=== PATIENT | male | born 1950 | race Caucasian/White ===

== ENCOUNTER → 2018-08-30 | Outpatient (CLI) | payer OTHER | LOC: HYPER 06:47 | DX: L89.153 Pressure ulcer of sacral region, stage 3 (principal); L89.224 Pressure ulcer of left hip, stage 4; L89.894 Pressure ulcer of other site, stage 4; L89.624 Pressure ulcer of left heel, stage 4; L89.323 Pressure ulcer of left buttock, stage 3; A92.30 West Nile virus infection, unspecified; A04.71 Enterocolitis due to Clostridium difficile, recurrent; G82.20 Paraplegia, unspecified; I50.20 Unspecified systolic (congestive) heart failure; I25.10 Atherosclerotic heart disease of native coronary artery without angina pectoris; F41.9 Anxiety disorder, unspecified; F32.9 Major depressive disorder, single episode, unspecified; Z86.711 Personal history of pulmonary embolism; Z93.3 Colostomy status; Z79.4 Long term (current) use of insulin ==

== ENCOUNTER → 2018-11-08 | Outpatient (CLI) | payer OTHER | LOC: ULTRA 09:17 | DX: L97.929 Non-pressure chronic ulcer of unspecified part of left lower leg with unspecified severity (principal); L97.919 Non-pressure chronic ulcer of unspecified part of right lower leg with unspecified severity; M79.661 Pain in right lower leg; M79.662 Pain in left lower leg ==

== ENCOUNTER → 2018-11-24 | Outpatient (CLI) | payer OTHER ==
[~2018-11-24] MED LIST: ASPIR 8181 MG PO; CYCLOBENZAPRINE5 MG PO; FENOFIBRATE160 MG PO; IRON325 PO; LEXAPRO 10 MG T10 M1 PO; LIPITOR10 MG PO; METFORMIN HCL500 MG PO; NEURONTIN 300300 M1 PO; ONDANSETRON HCL4 M2 PO; OXYCODONE-ACET1 EAC2 PO; OXYCONTIN10 M1 PO; PROTONIX40 M1 PO; TOPROL XL25 MG PO; TYLENOL325 MG PO; UNICOMPLEX M TA1 TA1 PO; VITAMINC500 PO
== END ==
LOC: MRI 13:32
DX: L97.129 Non-pressure chronic ulcer of left thigh with unspecified severity (principal); M86.8X5 Other osteomyelitis, thigh; M47.816 Spondylosis without myelopathy or radiculopathy, lumbar region; M62.562 Muscle wasting and atrophy, not elsewhere classified, left lower leg

== ENCOUNTER 2018-11-25 16:00 | Inpatient (IN) | payer OTHER ==
[~2018-11-25] VITALS: Ht 180.3 cm; Wt 64.9 kg
[2018-11-25 17:59] LABS: ABSOLUTE NEUTROPHILS 5.6 thou/uL (1.4-8.2); BASOPHILS 0.6 % (0.0-2.0); EOSINOPHILS 6.7 % (0.0-3.0); HEMATOCRIT 25.6 % (42.0-52.0); HEMOGLOBIN 8.5 gm/dL (14.0-18.0); LYMPHOCYTES 19.1 % (24.0-44.0); MCH 24.6 pg (26.0-34.0); MCHC 33.2 g/dL (28.0-37.0); MCV 74.3 fL (80.0-100.0); PLATELET COUNT 325 thou/uL (150-400); POLYS 61.6 % (36.0-66.0); RBC 3.45 mil/uL (4.50-6.00); RDW 15.4 % (10.5-14.5); WBC 9.2 thou/uL (4.0-11.0)
[2018-11-25 18:03] LABS: CALCIUM 8.5 mg/dL (8.5-10.1); CREATININE 0.9 mg/dL (0.7-1.3); POTASSIUM 4.7 mmol/L (3.5-5.1)
[2018-11-25 18:09] LABS: ALBUMIN 2.5 g/dL (3.4-5.0); TOTAL BILIRUBIN 0.2 mg/dL (<0.1-1.0)
[2018-11-25 18:50] VITALS: BP 132/66
[2018-11-25 18:51] VITALS: BP 132/66
[2018-11-25] MEDS ORDERED: TYLENOL325 MG PO (18:56)
[2018-11-25] MEDS ORDERED: ASPIR 8181 MG PO (18:56)
[2018-11-25] MEDS ORDERED: LIPITOR10 MG PO (18:56)
[2018-11-25] MEDS ORDERED: LEXAPRO 10 MG T10 M1 PO (18:57)
[2018-11-25] MEDS ORDERED: CYCLOBENZAPRINE5 MG PO (18:57)
[2018-11-25] MEDS ORDERED: NEURONTIN 300300 M1 PO (19:02)
[2018-11-25] MEDS ORDERED: IRON325 PO (19:02)
[2018-11-25] MEDS ORDERED: FENOFIBRATE160 MG PO (19:02)
[2018-11-25] MEDS ORDERED: TOPROL XL25 MG PO (19:03)
[2018-11-25] MEDS ORDERED: METFORMIN HCL500 MG PO (19:03)
[2018-11-25] MEDS ORDERED: VITAMINC500 PO (19:04)
[2018-11-25] MEDS ORDERED: UNICOMPLEX M TA1 TA1 PO (19:04)
[2018-11-25] MEDS ORDERED: OXYCODONE-ACET1 EAC2 PO (19:04)
[2018-11-25] MEDS ORDERED: OXYCONTIN10 M1 PO (19:04)
[2018-11-25] MEDS ORDERED: PROTONIX40 M1 PO (19:04)
[2018-11-25] MEDS ORDERED: ONDANSETRON HCL4 M2 PO (19:05)
[2018-11-25 19:06] VITALS: BP 123/64
[2018-11-25 19:30] LABS: URINE CLARITY CLOUDY; URINE COLOR YELLOW; URINE GLUCOSE-RANDOM* NEGATIVE (Negative); URINE KETONES NEGATIVE (Negative); URINE PROTEIN (DIPSTICK) 2+ (Negative); URINE SPECIFIC GRAVITY 1.005 (1.005-1.035)
[2018-11-25 19:31] VITALS: BP 132/65
[2018-11-25 19:31] LABS: URINE BILIRUBIN NEGATIVE (Negative); URINE BLOOD 3+ (Negative); URINE LEUKOCYTES-REFLEX 3+ (Negative); URINE NITRITE-REFLEX POSITIVE (Negative); URINE UROBILINOGEN 0.2 E.U./dl (0.2-1.0)
[2018-11-25 19:57] LABS: AMORPHOUS PHOSPHATES Many /LPF (None Seen); CASTS None Seen /LPF (None Seen); TRIPLE PHOSPHATE CRYSTALS 0-3 Few /LPF (None Seen)
[2018-11-25 19:58] LABS: BACTERIA-REFLEX >30 Many /HPF (None Seen); SQUAMOUS 0-3 Few /LPF (0-3); URINE WBC-REFLEX 0-5 Rare /HPF (0-5)
[2018-11-25 23:47] VITALS: BP 94/54
--- NOTE | 2018-11-26 02:58 | NUR ---
PT ARRIVED TO UNIT APPROX 1930, TRANSFERRED FROM CART TO BED AND SETTLED IN ROOM, PLACED ON TELE. CONSENTS SIGNED INCLUDING TELE DISCLAIMER. ADMISSION AND ASSESSMENT COMPLETED. 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 IS ABLE TO FEED HIMSELF AND ASSIST WITH GROOMING. USUALLY LIVES AT HOME BY HIMSELF AND HAS HOME HEALTH; CURRENTLY AT THE [facility]. PT DENIES NAUSEA OR SOB. REPORTS SIGNIFICANT PAIN IN LEFT LEG WOUND AND SACRUM; FOLLOWS WITH DR. GALLEGOS AT [facility] FOR PAIN MANAGEMENT. ALL WOUNDS PHOTOGRAPHED AND DOCUMENTED PER PROTOCOL. PT IS DIABETIC; NPO AT MIDNIGHT FOR POSSIBLE PROCEDURE TO WOUNDS IN AM. SR ON TELE WITH HR IN 80'S. PT HAS A COLOSTOMY AND SUPRAPUBIC MOSS; PT REPORTS NEEDING HIS CATHETER CHANGED IT HAS BEEN OVER A MONTH SINCE LAST CHANGED; STATES IT IS AN 18 Fr WITH 30 ML BALLOON. NO OTHER CONCERNS, WILL CONTINUE TO MONITOR.
[2018-11-26 04:38] VITALS: BP 122/71
[2018-11-26 05:37] LABS: HEMATOCRIT 29.8 % (42.0-52.0); HEMOGLOBIN 9.5 gm/dL (14.0-18.0); MCH 24.2 pg (26.0-34.0); MCV 75.7 fL (80.0-100.0); RBC 3.94 mil/uL (4.50-6.00); RDW 15.7 % (10.5-14.5); WBC 8.2 thou/uL (4.0-11.0)
[2018-11-26 05:57] LABS: CALCIUM 8.9 mg/dL (8.5-10.1); CREATININE 0.8 mg/dL (0.7-1.3); POTASSIUM 4.8 mmol/L (3.5-5.1)
[2018-11-26 08:01] VITALS: BP 90/52
--- NOTE | 2018-11-26 12:29 | NUR ---
DISCHARGE PLANNING. PATIENT ADMITTED FROM [facility]. PLAN IS FOR PATIENT TO RETURN TO [facility] ONCE MEDICALLY READY. CLINCAL INFORMATION FAXED TO [facility], [facility], VERIFIED RECEIVED. CALL PLACED TO [facility] TO NOTIFY. ANTICIPATED DISCHARGE PLANNED FOR THE BEGINNING OF NEXT WEEK. UNIT SW AWARE.
--- NOTE | 2018-11-26 13:51 | NUR ---
INITIAL ASSESSMENT: COURTNEY reviewed chart and spoke with nursing and attending physician. Pt was admitted from [facility] due to osteomyelitis. Pt with hx of paraplegia and has bilateral hip hounds. Surgery consulted. Pt is currently on IV abx. COURTNEY met with pt at bedside. Introduced role of SW. Pt is alert/orientated x 4. Pt reports he has been at [facility] for about a month. Prior to being at [facility], he was living at home with his nephew. Pt has a w/c for mobility and a lift device for transfers. Pt has used [facility] in the past. Pt is agreeable with returning to [facility] if needed or home with services. Will need insurance authorization for SNF placement. No weekend discharge planned. Pt agreeable with keeping [facility] updated. strategic planner faxed clinical info for review. COURTNEY is following to assist as needed with discharge planning.
[2018-11-26 16:25] VITALS: BP 126/75
--- NOTE | 2018-11-26 16:25 | NUR ---
ASSUMED CARE OF PATIENT AT 0700. PATIENT REMAINED NPO MOST OF THE DAY TODAY WHILE WAITING FOR DR VERMA TO RESPOND REGARDING SURGERY. DID NOT RECIEVE CALL FROM DR VERMA BUT DR ORDERED REGULAR DIET AROUND 1630. TURNED PATIENT AND MEDICATED FOR PAIN THROUGHOUT DAY. PATIENT ALSO RECIEVED ANTIBIOTIC THERAPY. PATIENT WAS SEEN BY WOUND CARE TODAY WHO ORDERED AQUACEL AG DAILY/PRN FOR HIS WOUNDS.
[2018-11-26 20:02] VITALS: BP 125/73; BP 425/73
--- NOTE | 2018-11-26 23:58 | NUR ---
ASSUMED CARE AT 1900, ASSESSMENT COMPLETED. PT DENIES SOB OR NAUSEA. REPORTS MODERATE PAIN IN LEFT THIGH AND SACRUM; UTILIZING PERCOCET AND MORPHINE FOR BREAKTHROUGH PAIN. DRESSINGS C/D/I; TURNING REGULARLY FOR WOUND HEALING; PRAFO BOOTS PLACED ON PT AND MIKAEL PUMP ATTACHED TO THE BED. HAS BEEN SR ON TELE OVERNIGHT. REPORT CALLED TO RUTHIE ON 4E, PT TRANSFERRED TO UNIT ABOUT 2340 IN STABLE CONDITION. PT NPO AT MIDNIGHT FOR WOUND DEBRIDEMENT IN AM.
--- NOTE | 2018-11-27 01:39 | NUR ---
PT ARRIVED FROM 3W QPPROXMIATELY 2330. PT ALERT AND ORIENTED. REASSESSMENT COMPLETE. AGREE WITH PREVIOUS NURSE ASSESSMENT. VSS. IV DRESSING C/D/I. PT NPO AT MIDNIGHT. SUPRAPUBIC MOSS CHANGED. COLOSTOMY INTACT. CALL LIGHT AND PERSONAL BELONINGS WITHIN REACH. CONSENTS FOR PROCEDURE IN AM, NOT SIGNED, PT STATED HAD NOT HAD SPOKE WITH PHYCISIAN REGARDING SPECIFICS OF PROCEDURES, WILL PASS ON TO AM NURSE. CALL LIGHT AND PERSONAL BELONGINGS WITHIN REACH, WORKING TOWARD POC. WILL CONTINUE POC UNTIL EOS.
[2018-11-27 04:45] VITALS: BP 137/67
[2018-11-27 07:51] VITALS: BP 119/68
[2018-11-27 14:11] VITALS: BP 134/79
--- NOTE | 2018-11-27 16:46 | NUR ---
PT STABLE THROUGHOUT SHIFT. PT HAD PEG PLACED AND I AND D OF WOUNDS, ALL OF WHICH HE TOLERATED WELL. DR. MI ROUNDED AFTER SURGERY, HE WILL CHANGE DRESSINGS TOMORROW. PT C/O PAIN, PAIN MEDICATION GIVEN WHICH ALLEVIATED PAIN. PT RESTING COMFORTABLY.
[2018-11-27 20:04] VITALS: BP 134/64
[2018-11-28 04:39] LABS: CALCIUM 8.6 mg/dL (8.5-10.1); CREATININE 0.7 mg/dL (0.7-1.3); POTASSIUM 4.1 mmol/L (3.5-5.1)
[2018-11-28 04:53] LABS: HEMATOCRIT 24.2 % (42.0-52.0); HEMOGLOBIN 7.9 gm/dL (14.0-18.0); MCH 24.4 pg (26.0-34.0); MCHC 32.6 g/dL (28.0-37.0); MCV 74.8 fL (80.0-100.0); RBC 3.23 mil/uL (4.50-6.00); RDW 15.9 % (10.5-14.5); WBC 7.4 thou/uL (4.0-11.0)
[2018-11-28 05:22] VITALS: BP 139/73
[2018-11-28 07:47] VITALS: BP 105/64
--- NOTE | 2018-11-28 08:16 | NUR ---
ASSESSMENTS CHARTED. RECEIVED PEG TUBE AND HAD WOUNDS WERE DEBRIDED. DRESSING WERE NOT CHANGED DURING SHIFT. DR. CHISHOLM TO CHANGE DRESSING HIMSELF. C/O PAIN DURING SHIFT. NO ORDERS WERE PLACED FOR PEG TUBE USE. Q2 TURNS.
[2018-11-28 08:24] LABS: FOLIC ACID 17.3 ng/mL (8.6-58.9)
--- NOTE | 2018-11-28 12:23 | HC ---
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 He is immobile and lives at home. The patient has been given a left lower quadrant diverting sigmoid colostomy in the past due to fecal incontinence and wound swelling. He also has a suprapubic catheter due to neurogenic bladder. Dr. Lore Bray placed a PEG tube today and took the patient to the operating room and performed debridement of left hip stage 4 pressure ulcer with left hip abscess. There is clinical osteomyelitis of the left hip. Dr. Bray also performed debridement of sacroischial pressure ulcers. The patient is also known to have a pressure ulcer of his left heel. PAST MEDICAL HISTORY: 1. 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 2. Immobility. 3. Neurogenic bladder with suprapubic catheter. 4. Fecal incontinence with colostomy. 5. Gastroesophageal reflux disease. 6. Myocardial infarction. 7. Diabetes mellitus type 2. 8. Hypertension. 9. Seizures. ALLERGIES: PENICILLIN, SULFA DRUGS, SULFAMETHOXAZOLE, TETRACYCLINE, BACTRIM. MEDICATIONS: Include Tylenol, aspirin, Lipitor, Flexeril, Lexapro, iron, Neurontin, Glucophage, Toprol, OxyContin, Protonix, Zofran. REVIEW OF SYSTEMS: The patient has limited mobility with paraplegia, has some upper extremity function. PHYSICAL EXAMINATION: GENERAL: Shows chronically ill-appearing, thin, elderly male who is alert, [facility] [address] [place] [address] CONSULTATION Name: KY HERNDON Room #: 428-P [facility] IN M.R.#: [id number] Admission: 11/25/18 Attend Phys: Chavez Bergeron MD Discharge: Date of : 52 Report #: [id number] pleasant and conversant. HEENT: Mucous membranes are moist. NECK: Supple. The patient has partial motor function of his upper extremities. ABDOMEN: Shows presence of the left lower quadrant colostomy, recently placed PEG tube and a chronic suprapubic catheter. EXTREMITIES: Shows unstageable ulcer of the left heel with a small open area. Examination of the left hip shows a cutaneous 2 x 3 cm incision and drainage site with deep packing. Packing will be removed tomorrow and depths of the wounds assessed. We will plan and pack this wound with quarter strength Dakin gauze. BACK: Examination of the patient's back shows diffuse unstageable pressure ulcers of the sacrum with stage 3 2 x 2 cm ulcer of the left buttock. IMPRESSION: 1. Chronic paraplegia secondary to [place] Nile with partial strength in upper extremities. 2. Neurogenic bladder with suprapubic catheter. 3. Fecal incontinence with chronic colostomy diversion. 4. Unstageable ulcer of the left heel with small open area. 5. Sacral stage 4 pressure ulcers with surrounding unstageable areas. 6. Left buttock stage 3 pressure ulcer. 7. Diabetes mellitus type 2 with skin ulcers. PLAN: Today is postoperative day #0. Tomorrow, we will remove the packing from the left hip wound, pack the wound with quarter strength Dakin's gauze. The patient will continue on IV antibiotics. We will dress the wounds of the sacroischial areas with Silvadene and Xeroform. Offload with low air loss mattress. Wound care team will follow. <ELECTRONICALLY SIGNED> By: Bryson Lopez MD 11/28/18 1223 [id number] Bryson Lopez MD /nt
[2018-11-28 19:40] VITALS: BP 143/71
[2018-11-29 02:45] VITALS: BP 144/68
--- NOTE | 2018-11-29 03:10 | NUR ---
ASSESSMENT COMPLETED.PT C/O PAIN ON HIS L HIP,MANAGED WITH MED.WOUND DRSG TO HIS HIP AND SACRUM NOT CHANGED EARLIER,PT REFUSED, WAS LATER CHANGED MID MORNING DUE TO SOILAGE.PEG TUBE IN PLACE,DRSG AROUND IT CHANGED.NO ORDERS NOTED FOR TUBE FEEDING YET.PT TURNED PER HIS REQUEST.PRAFO BOOTS ON LUPIS LOWER EXT.ISOALTION PRECAUTIONS MAINTAINED.FALL PRECAUTIONS IN PLACE,CALL LIGHT WITHIN REACH.
--- NOTE | 2018-11-29 07:59 | NUR ---
PATIENT CARE WAS ASSUMED AT 0715.PATIENT IS ALERT AND ORIETNED X4.PT IS A Q 2 TURNS.IV IS INTACT AND SALINE LOCKED.PT HAS PEG TUBE INTACT.COLOSTOMY INTACT.UROSTOMY WITH DRAINAGE BAG INTACT. PT IS ROOM AIR.HAS DRESSING TO BACK LEFT HIP AND SACRUM TO BE CHANGED BID.PT IS CURRENTLY ON CONTACT PRECAUTIONS.CALL LIGHT,PHONE, AND PERSONAL BELONGINGS ARE WITHIN REACH.
[2018-11-29 08:01] VITALS: BP 153/73
--- NOTE | 2018-11-29 13:10 | NUR ---
FAXED UPDATE TO [facility] SPOKE WITH GERMAINE IN ADM SHE RECEIVED UPDATE AND WILL REVIEWD. 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 DCP TO FOLLOW.
[2018-11-29 17:33] VITALS: BP 148/69
[2018-11-29 19:50] VITALS: BP 150/73
--- NOTE | 2018-11-29 23:56 | NUR ---
ASSUMED PT CARE 1899. PT ALERT ADN ORIENTED. REASSESSMENT COMPLETE. VSS. IV DRESSING C/D/I. REPORTS PAIN, SEE EMAR. DENIES N/V. FREQUENT REPOSITIONING. WORKING TOWARD POC. CALL LIGHT ADN PERSONAL BELONINGS WITHIN REACH. WILL CONTINUE POC UNTIL EOS.
[2018-11-30 03:35] VITALS: BP 145/69
[2018-11-30 06:46] LABS: % SATURATION 10 % (20-39); IRON 25 ug/dL (65-175); TIBC 253 ug/dL (250-450)
[2018-11-30 08:27] VITALS: BP 138/58
[2018-11-30 08:35] LABS: OBSERVED RETIC COUNT 1.23 % (0.6-2.6)
[2018-11-30 17:02] VITALS: BP 140/74
--- NOTE | 2018-11-30 20:30 | NUR ---
ASSUMED CARE OF PT AT 0700. ASSESSMENT CHARTED. A&O,X4. C/O LEG PAIN, PAIN MEDS GIVEN ORDERED. LEFT HAND IV INFILTRATED DURING SHIFT, IV TEAM NOTIFIED. NEW IV PLACED. ACHS, INSULIN PER SLIDING SCALE, PT REFUSED AT TIMES. Q2H TURNS. SEVERAL WOUNDS, DRESSING CHANGED ORDERED. PEG TUBE, COLOSTOMY, SUPRAPUBIC CATHETER IN PLACE. PT PROGRESSING TOWARDS GOALS.
[2018-11-30 21:20] VITALS: BP 138/80
[2018-12-01 03:40] VITALS: BP 139/74
--- NOTE | 2018-12-01 05:49 | NUR ---
pt rested and has been turned every two hours with assist, ble having stiffness and spasm, pain controlled by odxycodone and morphine iv, on room air, dressing to ischial tuberosity/hips/buttocks, cdi, on air loss bed, prafo boots ble, alert/oriened, tolerating oral intake, monitored.
[2018-12-01 07:48] VITALS: BP 131/62
--- NOTE | 2018-12-01 09:35 | NUR ---
When PEG ready to use, recommend 2cal HN; administer 2 cans nocturnal (60ml/hr x 8hr). Administer 1 packet Jayson in 240ml water flush twice daily.
--- NOTE | 2018-12-01 12:24 | NUR ---
CONSULTED TO PLACE A PICC FOR A PATIENT DISCHARGING ON HOME IV ANTIBIOTICS. ORDER AND CONSENT NOTED. THE PROCEDURE WELL BENIFITS AND RISKS FOR DVT AND INFECTION WERE DISCUSED AND HE VERBALIZED UNDERSTANDING. THE RIGHT UPPER ARM BRACHIAL WAS WIDLEY PATENT. A #4F SINGLE LUMEN POWER PICC WAS PLACED PER HOSPITAL POLICY AFTER A BEDSIDE TIMOEUT WAS COMPLETED. THE LINE WAS TRIMMED TO 42CM AND ADVANCED WITHOUT DIFFICULTY. A STAT CHEST XRAY NOTED THE LINE NEEDED TO BE RETRACTED. LINE RETRACTED 6CM AND A 2ND CHEST XRAY COMPLETED. THE RADIOLOGIST CONFIRMED THE LINE IS NOW IN GOOD POSITION FOR USE.
[2018-12-01 16:20] VITALS: BP 139/81
--- NOTE | 2018-12-01 16:39 | NUR ---
CASE DISCUSSED WITH WOUND CARE, AND PRIMARY DR AND WOUND CARE DISCUSSED WITH PT GOING TO LTAC FOR CLOSER WOUND MONITORING. PT ISAGREEABLE TO CHECK INTO THIS OPTION. ASKED DC LOSS PREVENTION RESEARCH ENGINEER TO FAX REFERRAL TO [facility]. OFFERED LTAC OPTIONS.
--- NOTE | 2018-12-01 16:59 | NUR ---
FAXED REFERRAL TO [facility] LEFT MSG WITH KRISHAN IN ADM THAT PT WILL BE READY FOR DC THURSDAY. DCP TO FOLLOW.
[2018-12-01 19:40] VITALS: BP 152/69
--- NOTE | 2018-12-01 22:30 | HC ---
[facility] [place] [address] CONSULTATION Name: KY HERNDON Room #: 428-P ADM IN M.R.#: [id number] Admission: 11/25/18 Attend Phys: Chavez Bergeorn MD Discharge: Date of : 52 Report #: [id number] THIS REPORT FOR: //name// CC: Maegan Bergeron DATE OF SERVICE: 11/30/2018 INFECTIOUS DISEASES CONSULTATION REASON FOR CONSULTATION: I was asked to evaluate concerning pelvic osteomyelitis. 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 He has developed bilateral hip and ischial wounds. Hospitalized multiple times in the past regarding these. States he usually goes to [facility]. Most recently, he has had worsening wound to the left hip region. This began to drain purulent material. He has had no fever, chills or sweats. Hospitalized on 11/25/2018 where he underwent an MRI scan, which showed evidence of early osteomyelitis of the left greater trochanter as well as the ischium. He subsequently underwent surgical debridement. He has a diverting colostomy and a suprapubic catheter placed. He now has a PEG tube. Cultures are now growing MRSA, Pseudomonas aeruginosa, Proteus. ALLERGIES: To PENICILLIN, SULFA, TETRACYCLINE. MEDICATIONS: As noted on his MAR, which were reviewed. PAST MEDICAL HISTORY: West Nile virus infection, paraplegia, pressure wounds with secondary infection. CO, hypertension, seizure disorder, diabetes. FAMILY HISTORY: Noncontributory. SOCIAL HISTORY: Nonsmoker, no significant alcohol intake. REVIEW OF SYSTEMS: Denies any other skin rashes. He has peripheral IV in place. No vision changes. Denies any hearing problems or oral lesions. No cough or sputum production. No cardiovascular complaints. Colostomy has been functioning well. No nausea or vomiting. He has a suprapubic catheter, which is functioning well. No back or extremity pain. Skin as noted above. Neurologic as noted above. Psychiatric negative. Full 10-point review was negative other than what is noted above. PHYSICAL EXAMINATION: GENERAL: Afebrile and hemodynamically stable. Alert and cooperative. [facility] [address] [place] [address] CONSULTATION Name: KY HERNDON Room #: 428-P ADM IN M.R.#: [id number] Admission: 11/25/18 Attend Phys: Chavez Bergeron MD Discharge: Date of : 52 Report #: [id number] EXTREMITIES: Multiple wounds to his pelvis, which are dressed and dry. I have discussed with nursing staff, we have just the dressings. They were relatively clean. Right ankle dressing was intact and dry. EYES: Without scleral icterus. MOUTH: Without mucositis. NECK: Supple. LUNGS: Clear. HEART: Regular, without murmur, gallop or rub. ABDOMEN: Soft. No masses. PEG site unremarkable. Colostomy functional with normal mucosal changes. Suprapubic catheter site without erythema or drainage. NEUROLOGIC AND PSYCHIATRIC: He is paraplegic. Mood normal. LABORATORY STUDIES: Reviewed. Cultures as noted above. Urine culture also with Pseudomonas and MRSA. Hip culture shows MRSA, Proteus and Bacteroides. Creatinine 0.7. Liver function test normal. Hemoglobin 7.9, WBC 7.4, platelet 280,000. ESR 104. Vancomycin trough 20. Urinalysis with few wbc's, many bacteria. MRI scan as noted above with large ulceration, left hip associated abscess with greater trochanter osteomyelitis, also ulceration at right ischium with changes of osteomyelitis there as well. IMPRESSION: 1. Left greater trochanter hip osteomyelitis with associated right ischial osteomyelitis. 2. Polymicrobial infection. 3. Anemia. 4. Paraplegia. RECOMMENDATIONS: We will continue IV antibiotic therapy with meropenem for patient, does have multiple drug allergies. I have a PICC line placed. Continue with offloading and wound care. I anticipate the patient will require prolonged course of treatment. If no improvement, then would look toward myocutaneous flap coverage. <ELECTRONICALLY SIGNED> By: Ari Castillo MD 12/01/18 2230 51 [id number] Ari Castillo MD /nt
[2018-12-02] VITALS (7 sets, daily range): BP systolic 114–146; BP diastolic 57–75
--- NOTE | 2018-12-02 04:29 | NUR ---
PATIENT ASSESSED AND IS ALERT X 4. SKIN WARM AND DRY. RESP EVEN AND UNLABORED. ALL WOUNDS DRESSING DRY AND INTACT. ON BEDREST. PROFO BOOTS INTACT. TURNED Q 2 HOURS AND PRN. REMAINSW IN ISOLATION. HAS A RIGHT UPPER ARM PICC THAT FLUSHES WELL. SUPERPUBIC CATH IN TACT. ALSO HAS A COLOSTOMY THAT HAS BROWN HARD STOOL IN LARGE AMOUNTS . ON ROOM AIR. LUNGS CTA-DISM. ACCUCHECKS WAS 181. 8 UNITS GIVEN AT 2105. PATIENT IS A PARAPLEGIC. HAS HX OF RECURRENT UTI'S. NO SEIZURES NOTED. CAME IN WITH OSTEOMYLITIS. AND WOUND CARE ATTENTION. PAIN MEDICATION GIVEN WITH SOME RELIEF. CONT PLAN OF CARE. WITH PAIN CONTROL.
[2018-12-02 05:02] LABS: HEMATOCRIT 22.7 % (42.0-52.0); HEMOGLOBIN 7.5 gm/dL (14.0-18.0); MCH 24.6 pg (26.0-34.0); MCV 74.6 fL (80.0-100.0); RBC 3.04 mil/uL (4.50-6.00); RDW 15.4 % (10.5-14.5); WBC 7.3 thou/uL (4.0-11.0)
[2018-12-02 05:36] LABS: ALBUMIN 2.1 g/dL (3.4-5.0); CALCIUM 8.4 mg/dL (8.5-10.1); CREATININE 0.8 mg/dL (0.7-1.3); MAGNESIUM 1.3 mg/dL (1.8-2.4); POTASSIUM 4.2 mmol/L (3.5-5.1); TOTAL BILIRUBIN 0.2 mg/dL (<0.1-1.0); TOTAL PROTEIN 7.2 g/dL (6.4-8.2)
--- NOTE | 2018-12-02 14:41 | NUR ---
PT A&OX4, NON AMBULATORY PT IS A PARA. PICC LINE IN [place] INTACT. PT HAVING HARD STOOLS PER COLOSTOMY BAG. SUPRAPUBIC CATH IN PLACE. PT IN SURGERY AT THIS TIME FOR DEBRIDEMENT, NPO SINCE MN. PT WILL TRANSFER TO TELE FLOOR AFTER POST OP. WILL CALL REPORT.
--- NOTE | 2018-12-02 18:28 | NUR ---
PATIENT TRANSFER FROM POST LEFT SACUM I & D AT 1730. VSS. A/0 4. WILL START TB AT [facility]. SURGECAL DRESSING ON LEFT THING AND BUTTOCK. WILL KEEP MONITOR.
[2018-12-03 00:24] VITALS: BP 120/60
[2018-12-03 04:10] VITALS: BP 120/59
[2018-12-03 05:37] LABS: HEMATOCRIT 23.9 % (42.0-52.0); HEMOGLOBIN 7.8 gm/dL (14.0-18.0); MCH 24.5 pg (26.0-34.0); MCHC 32.7 g/dL (28.0-37.0); MCV 74.8 fL (80.0-100.0); RBC 3.19 mil/uL (4.50-6.00); RDW 15.6 % (10.5-14.5); WBC 8.4 thou/uL (4.0-11.0)
--- NOTE | 2018-12-03 06:09 | NUR ---
PATIENT IS PROGRESSING SLOWLY IN HIS CARE PLAN. VITAL SIGNS STABLE WITH PATIENT HAVING NO COMPLAINTS OF NAUSEA. PATIENT DID COMPLAIN OF PAIN FREQUENTLY IN BACKSIDE WHICH WAS TREATED BY MEDICATION AND NON PHARMACOLOGICAL INTERVENTION. PATIENT ALERT AND ORIENTED AND ABLE TO CALL APPROPRIATELY FOR NEEDS. SURGICAL SITE MONITORED CLOSELY. TUBE FEED PROVIDED PER DOCTOR ORDER. PATIENT HAD A CRITICAL HIGH VANCOMYCIN TROUGH THIS MORNING. POSSIBLE DISCHARGE SOON. CONTINUE PLAN OF CARE.
[2018-12-03 07:35] VITALS: BP 91/51
[2018-12-03] MEDS ORDERED: VANCO 1 GR1 GM/250 M IVPB (10:49)
[2018-12-03] MEDS ORDERED: MEROPENEM500 MG IV (10:49)
[2018-12-03] MEDS ORDERED: NOVOLOG100 UNIT/1 SUBQ (10:49)
[2018-12-03] MEDS ORDERED: LANTUS100 UNIT/M SUBQ (10:49)
--- NOTE | 2018-12-03 13:44 | NUR ---
DISCHARGE ORDERS COMPLETED. CHART COPY COMPLETED PER MARKETING ANALYTICS LEAD. DISCHARGE ORDERS AND ADDITIONAL CLINICALS FAXED TO [facility], VERIFIED RECEIVED. [facility] TO TRANSPORT PATIENT, 1500 HOURS. FAMILY NOTIFIED AT BEDSIDE PER UNIT RN. CONTACT NUMBER PROVIDED FOR REPORT. UNIT SW AWARE.
--- NOTE | 2018-12-03 14:25 | NUR ---
DISCHARGE NOTE: SW reviewed chart and spoke with nursing and attending physician. Pt was transferred to from and is medically stable for discharge to [facility] today. SW confirmed plan with [facility] liaison. business continuity planner coordinated and arranged ambulance transportation for 1500. Pt is aware and agreeable with discharge plan. Chart copy ordered. Nursing to call report. COURTNEY spoke with Erlinda in admissions at [facility] to provide update and to notify of pt's discharge disposition. No additional SW needs identified at this time, but is available to assist should needs arise.
--- NOTE | 2018-12-03 16:26 | NUR ---
ASSUMED PATIENT CARE AT 0700. A/0 X4. VSS. WOUND PICTRUE TAKING. WILL TRANSFER TO [facility] SOON.
--- NOTE | 2018-12-23 11:03 | O ---
[facility] [place] [address] OPERATIVE REPORT Name: KY HERNDON Room #: 357-P [facility] IN M.R.#: [id number] Admission: 11/25/18 Attend Phys: Chavez Bergeron MD Discharge: 12/03/18 Date of : 52 Report #: [id number] THIS REPORT FOR: //name// CC: Maegan Bergeron DATE OF SERVICE: 11/27/2018 PREOPERATIVE DIAGNOSES: 1. Bilateral sacroischial decubitus wounds that are stage 4 in nature with gross purulent drainage. 2. Protein-calorie malnutrition. 3. Paralysis. POSTOPERATIVE DIAGNOSES: 1. Bilateral sacral ischial decubitus wounds that are stage 4 in nature with gross purulent drainage. 2. Protein-calorie malnutrition. 3. Paralysis. PROCEDURES PERFORMED: 1. Excisional debridement of skin, subcutaneous tissue, muscle and bone of a stage 4 sacral decubitus wound ultimately measuring 5 x 5 cm in dimension (25 sq cm). Preoperative wound measurements were approximately 2 x 2 cm in dimension with periwound necrosis and undermining. 2. Excisional debridement of skin, subcutaneous tissue, muscle and bone of a left ischial decubitus wound measuring 2 x 2 cm in dimension 4 square cm). Preoperative and postoperative wound measurements were unchanged as the overall dimensions did not change substantially. 3. Excisional debridement of skin, subcutaneous tissue, muscle and bone of a stage 4 right ischial decubitus wound measuring 2 x 2 cm in dimension (4 square cm). Preoperative and postoperative wound measurements did not change substantially. 4. Esophagogastroduodenoscopy (EGD) with placement of a percutaneous endoscopic gastrostomy (PEG) tube. SURGEON: Lore Bray M.D. SEAFOOD FISHERMAN: None. ANESTHESIA: General endotracheal anesthesia. ESTIMATED BLOOD LOSS: Minimal (less than 10 mL). COMPLICATIONS: None appreciated. [address] [address] OPERATIVE REPORT Name: KY HERNDON New Room #: 357-P [facility] IN David.#: [id number] Admission: 11/25/18 Attend Phys: Chavez Bergeron MD Discharge: 12/03/18 Date of : 52 Report #: [id number] SPECIMENS: All excised tissue to pathology. INDICATIONS: The patient is a 68-year-old male with West Nile paraplegia who has the prior placed colostomy for fecal diversion, but has developed severe stage 4 sacroischial decubitus wounds in need of debridement as well as PEG tube placement for protein-calorie malnutrition. DESCRIPTION OF PROCEDURE: After explaining the risks, benefits and alternatives of the procedure with the patient in detail and obtaining consent, the patient was brought to the operating room and placed supine on his hospital bed. After conducting a thorough timeout procedure verifying correct patient and procedure, the patient was given general endotracheal anesthesia. Once adequate anesthesia was obtained, he was positioned on the operating room table in the prone position with all pressure points appropriately padded and his sacroischial decubitus wounds were prepped and draped in standard surgical sterile fashion. Electrocautery was used to circumferentially debride all nonviable skin, subcutaneous tissue, muscle, and bone from the depths of each wound. The patient's left ischial wound did have approximately 10 cm of subcutaneous tunneling all the way down to the ischial bone from just inferior to the gluteal crease. This was significantly more substantial than expected preoperatively, and as such, I did not elect to debride open the wound entirely but rather cleaned out all gross purulent drainage at this time. [employer] ultrasonic debridement tool was used to remove all remaining biofilm and nonviable tissue from each wound. The wounds were then packed with sterile saline soaked Kerlix gauze, dressed with ABDs and Medipore tape. The patient was positioned in the supine position back on his hospital bed and the [employer] upper endoscope was used to intubate the oropharynx, traversed down to the gastric lumen with ease. There was no evidence of a hiatal hernia. The stomach was fully insufflated and I was able to easily identify an appropriate site for PEG tube placement with both transillumination as well as manual external ballottement. This abdominal wall was then prepped and draped in standard surgical sterile fashion. 5 mL of 1% plain lidocaine were used for anesthesia and a 7-mm transverse skin incision was made using a #11 bladed scalpel. The needle-sheath apparatus was directed through this incision site through the anterior gastric wall under direct vision with the upper endoscope and the needle was removed. A wire was placed down the sheath, which was grasped using a loop snare down the EGD scope, which was then removed, bringing the wire through with it. A 20-Yi pull-type PEG tube was then attached to the wire and pulled down through the anterior gastric wall as well as the anterior abdominal wall in standard fashion. The Fujinon upper endoscope was used to intubate back into the gastric lumen where the internal flange was seen to reside against the gastric wall. The stomach was fully desufflated, the scope was removed and passed off the field. The external flange clamp and end adaptor were then applied to the PEG tube in standard fashion completing the procedure. At the end of the procedure, all instrument, needle and sponge counts were correct. The patient tolerated the procedure [address] [address] OPERATIVE REPORT Name: KY HERNDON New Room #: 357-P [facility] IN ..#: [id number] Admission: 11/25/18 Attend Phys: Chavez Bergeron MD Discharge: 12/03/18 Date of : 52 Report #: [id number] without incident, was awakened in the operating room and transitioned to the recovery room in stable condition with no apparent complications. <ELECTRONICALLY SIGNED> By: Lore Bray MD, FACS 12/23/18 1103 [id number] Lore Bray MD, FACS /nt
--- NOTE | 2018-12-24 10:41 | O ---
[facility] [place] [address] OPERATIVE REPORT Name: KATRINAKY New Room #: 357-P [facility] IN M.R.#: [id number] Admission: 11/25/18 Attend Phys: Chavez Bergeron MD Discharge: 12/03/18 Date of : 52 Report #: [id number] THIS REPORT FOR: //name// CC: Maegan Bergeron DATE OF SERVICE: 12/02/2018 PREOPERATIVE DIAGNOSES: 1. 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 2. Protein-calorie malnutrition. POSTOPERATIVE DIAGNOSES: 1. 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 2. Protein-calorie malnutrition. PROCEDURES PERFORMED: 1. Excisional debridement of skin, subcutaneous tissue, muscle and bone of a stage 4 sacral decubitus wound ultimately measuring 5 x 5 cm in dimension (25 square cm). Preoperative and postoperative wound measurements did not change substantially. 2. Excisional debridement of skin, subcutaneous tissue, muscle and bone of a stage 4 left ischial decubitus wound ultimately measuring 20 x 8 cm in dimension (160 square cm). Preoperative wound measurements were 2 x 2 cm in dimension with significant tunneling of at least 10 cm to the left ischial bone. 3. Excisional debridement of skin, subcutaneous tissue, muscle and bone of a stage 4 right ischial decubitus wound ultimately measuring 4 x 4 cm in dimension (16 square cm). Preoperative wound measurements were approximately 2 x 2 cm in dimension with tunneling to bone as well. 4. Total surface area of wounds debrided to bone equals 201 square cm. 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 ANESTHESIA: General endotracheal anesthesia. ESTIMATED BLOOD LOSS: Minimal (less than 5 mL). COMPLICATIONS: None appreciated. SPECIMENS: All excised tissue to pathology. 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 The patient's wounds underwent [address] [address] OPERATIVE REPORT Name: KY HERNDON Room #: 357-P [facility] IN M.R.#: [id number] Admission: 11/25/18 Attend Phys: Chavez Bergeron MD Discharge: 12/03/18 Date of : 52 Report #: [id number] debridement recently with significant tunneling found of the left ischial wound and local debridement was undertaken with thorough counseling regarding the need for expanding this incision to make one large wound in order to adequately debride osteomyelitic bone. After thorough counseling and obtaining consent, we presented today for definitive surgical management once again. DESCRIPTION OF PROCEDURE: After explaining the risks, benefits and alternatives of the procedure with the patient in detail in the preoperative holding area and obtaining written consent, the patient was brought to the operating room and placed supine on the operating room table. After conducting a thorough timeout procedure verifying correct patient and procedure, the patient was given general endotracheal anesthesia. Once adequate anesthesia was attained, his SCDs were hooked up to pneumatic compression device. He was given a preoperative dose of antibiotics in line with the SCIP protocol. The patient was then positioned in the prone position with all pressure points appropriately padded and was prepped and draped in standard surgical sterile fashion. Electrocautery was used to fully open the long left ischial tract with a finger placed in the wound to control the incision. This was carried down all the way up to the left ischial bone and all nonviable tissue was debrided with electrocautery back to healthy bleeding tissue throughout. I then proceeded to perform a repeat debridement of both the sacral and right ischial decubitus wounds as well with slight enlargement of the right ischial wound due to tunneling. Hemostasis was obtained with electrocautery. The [employer] ultrasonic debridement tool was now used to circumferentially debride all remaining nonviable tissue and biofilm from the entirety of each of the wounds. This left us with open wounds that were easily accessible and amenable to local wound care at this juncture. Bone was taken down to healthy bleeding bone. The wounds were irrigated. No further purulent drainage was identified. I then packed each wounds tightly with sterile saline soaked Kerlix gauze, dressed with ABDs and Medipore tape completing the procedure. At the end of the procedure, all instrument, needle and sponge counts were correct. The patient tolerated the procedure without incident, was awakened in the operating room and transitioned to the recovery room in stable condition with no apparent complications. <ELECTRONICALLY SIGNED> By: Lore Bray MD, FACS 12/24/18 1041 [id number] [id number] Lore Bray MD, FACS /nt
== END 2018-12-03 16:44 | DRG 981 ==
LOC: ER 16:00 → EROBS 18:25 → 4E 18:25 → 3W 18:25 → 4E 11-27 01:15 → 3W 12-02 17:01
PROVIDERS: Nurse Practitioner Family; Physician Assistant; Surgery; ADMIT Internal Medicine
DX: L89.154 Pressure ulcer of sacral region, stage 4 (principal); G95.11 Acute infarction of spinal cord (embolic) (nonembolic); E43 Unspecified severe protein-calorie malnutrition; M86.8X6 Other osteomyelitis, lower leg; L02.416 Cutaneous abscess of left lower limb; L02.415 Cutaneous abscess of right lower limb; G82.20 Paraplegia, unspecified; L03.116 Cellulitis of left lower limb; L03.115 Cellulitis of right lower limb; E11.69 Type 2 diabetes mellitus with other specified complication; L89.323 Pressure ulcer of left buttock, stage 3; L89.224 Pressure ulcer of left hip, stage 4; L89.894 Pressure ulcer of other site, stage 4; L89.623 Pressure ulcer of left heel, stage 3; K21.9 Gastro-esophageal reflux disease without esophagitis; F32.9 Major depressive disorder, single episode, unspecified; I10 Essential (primary) hypertension; N31.9 Neuromuscular dysfunction of bladder, unspecified; R15.9 Full incontinence of feces; E11.622 Type 2 diabetes mellitus with other skin ulcer; A49.9 Bacterial infection, unspecified; D50.9 Iron deficiency anemia, unspecified; G89.29 Other chronic pain; E53.8 Deficiency of other specified B group vitamins; G47.00 Insomnia, unspecified; A49.02 Methicillin resistant Staphylococcus aureus infection, unspecified site; Z93.3 Colostomy status; I25.2 Old myocardial infarction; Z88.1 Allergy status to other antibiotic agents; Z88.0 Allergy status to penicillin; Z88.2 Allergy status to sulfonamides; Z88.8 Allergy status to other drugs, medicaments and biological substances; Z68.20 Body mass index [BMI] 20.0-20.9, adult
CPT/HCPCS: 10084; 10183; 10879; 27000; 50010; 50101; 50386; 50403; 57119; 57120; 57192; 62110; 62900; 70005